=== PATIENT | female | born 1940 | race Caucasian/White ===

== ENCOUNTER 2022-12-19 16:14 | Emergency (ER) | payer MEDICARE, OTHER ==
[~2022-12-19] VITALS: Ht 162.6 cm; Wt 86.2 kg
[~2022-12-19 16:14] MED LIST: ADVAIR INH; ALEVE220 M1 PO; AMITRIPTYLINE H50 MG PO; AMLODIPINE BESYL5 MG PO; CELEBREX200 MG PO; CYCLOBENZAPRINE10 MG PO; HYDROCODON-ACE1 EA11 PO; LEVOTHYROXINE100 MCG PO; OMEPRAZOLE20 MG PO; PROPRANOLOL HCL40 MG PO; TRIAMTERENE-HC1 EAC2 PO; TYLENOL #4 PO; TYLENOL WITH C1 EACH PO
[2022-12-19] MEDS ORDERED: BACITRACIN ZINC 0.9GM TP ONE (16:42)
[2022-12-19] MEDS ORDERED: MUPIROCIN 2% OINT 22 GM TUBE TOP ONE (16:45)
== END 2022-12-19 16:47 | disposition home or self-care (01) ==
LOC: FSED 16:21
DX: S80.11XA Contusion of right lower leg, initial encounter (principal); W01.198A Fall on same level from slipping, tripping and stumbling with subsequent striking against other object, initial encounter; Y93.01 Activity, walking, marching and hiking; Y92.89 Other specified places as the place of occurrence of the external cause; I10 Essential (primary) hypertension; E03.9 Hypothyroidism, unspecified; K21.9 Gastro-esophageal reflux disease without esophagitis; Z85.6 Personal history of leukemia
CPT/HCPCS: 99282